=== PATIENT | male | born 1940 | race Caucasian/White ===

== ENCOUNTER 2021-07-24 19:23 | Emergency (ER) | payer MEDICARE, OTHER ==
[~2021-07-24] VITALS: Ht 165.1 cm; Wt 136.1 kg
[~2021-07-24 19:23] MED LIST: OXYM.05NI; RXSULTRIDS PO; SULTRIDS PO
[2021-07-24] MEDS ORDERED: AMOCLA875 PO (20:56)
== END 2021-07-24 21:31 | disposition home or self-care (01) ==
LOC: ER 19:23
DX: S51.852A Open bite of left forearm, initial encounter (principal); S51.851A Open bite of right forearm, initial encounter; S41.152A Open bite of left upper arm, initial encounter; S41.151A Open bite of right upper arm, initial encounter; S61.051A Open bite of right thumb without damage to nail, initial encounter; S61.255A Open bite of left ring finger without damage to nail, initial encounter; W55.01XA Bitten by cat, initial encounter; Z79.899 Other long term (current) drug therapy
CPT/HCPCS: 12001; 90471; 90714; 99282-25; A9270

== ENCOUNTER 2024-01-22 05:58 | Day surgery (SDC) | payer MEDICARE, OTHER ==
[~2024-01-22] VITALS: Ht 165.1 cm; Wt 107.9 kg
[2024-01-22] VITALS (14 sets, daily range): BP systolic 105–129; BP diastolic 62–87
[~2024-01-22 05:58] MED LIST changes: +AMOCLA875 PO; +ASPI81CH PO; +ATOR40TA PO; +PANT40 PO
[2024-01-22] MEDS ORDERED: Lactated Ringer's 1,000 ML IV SCH ×2 (06:20→06:50)
[2024-01-22] MEDS ORDERED: Tranexamic Acid 100 ML IV SCH (06:20)
[2024-01-22] MEDS ORDERED: Chlorhexidine Mouth Care 15 ML UDC MT SCH (06:20)
[2024-01-22] MEDS ORDERED: Ropivacaine 0.5% HCl/Pf 123.125 MG,EPINEPHrine HCL 0.25 MG,Ketorolac Tromethamine 15 MG... INFIL SCH (06:20)
[2024-01-22] MEDS ORDERED: Vancomycin HCL 1,000 MG in NS 250 ML IV SCH ×2 (06:20→20:00)
[2024-01-22] MEDS ORDERED: Acetaminophen 500 MG Tab PO SCH ×2 (06:20→08:00)
[2024-01-22] MEDS ORDERED: OxyCODONE HCL 10 MG TABCR PO SCH (06:20)
[2024-01-22] MEDS ORDERED: CeFAZolin Sodium 2,000 MG in NS 100 ML IV SCH ×2 (06:20→16:00)
[2024-01-22] MEDS ORDERED: HYDROmorphone HCl/Pf 1MG SYR IV PRN (06:45)
[2024-01-22] MEDS ORDERED: Ondansetron HCl 2 MG / ML 2ML Vial IV PRN (06:50)
[2024-01-22] MEDS ORDERED: Metoclopramide HCl 5MG / ML 2ML Vial IV PRN (06:50)
[2024-01-22] MEDS ORDERED: OxyCODONE HCL 5 MG TAB PO PRN ×2 (06:50)
[2024-01-22] MEDS ORDERED: Magnesium Hydroxide Conc 10 ML UDC PO PRN (06:50)
[2024-01-22] MEDS ORDERED: Prochlorperazine Edisylate 10 mg Vial IV PRN (06:50)
[2024-01-22] MEDS ORDERED: DiphenhydrAMINE HCL 25 MG Cap PO PRN (06:55)
[2024-01-22] MEDS ORDERED: Bisacodyl 10 MG Supp PR PRN (06:55)
[2024-01-22] MEDS ORDERED: Promethazine HCl 25 MG Tab PO PRN (06:55)
[2024-01-22] MEDS ORDERED: FLU VACC TS2024-25(6MOS UP)/PF 45 MCG/0.5 ML SYRINGE IM SCH (06:55)
[2024-01-22] MEDS ORDERED: Lidocaine HCl 2% 20 ML MDV ONE (07:26)
--- NOTE | 2024-01-22 07:30 | NUR ---
History, Chart, Medications and Allergies reviewed before start of procedure. Pre-Op teaching done. Pt verbalizes understanding. Patient confirms NPO status and agrees with scheduled surgery. PT REMOVED GLASSES AND BOTH TOP AND BOTTOM DENTURES AND PLACED IN PACU. SPECIMEN CUP SENT WITH PAYROLL CONSULTANT FOR PT TO GIVE HEARING AIDS ONCE IN OR. PT CLOTHES PLACED IN BELONINGS BAG UNDER BED.
[2024-01-22] MEDS ORDERED: Dexamethasone Sod Phos 10 MG/ML 1ML VIAL ONE (07:53)
[2024-01-22] MEDS ORDERED: Phenylephrine HCl 100 MCG/ML-NS 10MLSYR (1MG/10ML) ONE (07:57)
[2024-01-22] MEDS ORDERED: Phenylephrine HCl 10mg/ml 1 ml Vial ONE (08:06)
--- NOTE | 2024-01-22 08:32 | NUR ---
01/22/24 0832 Sara Meyer SKIN TEAR NOTED ON RIGHT GROIN CREASE, NOTED SKIN IN PANNIS RED AND A BRUISE PRESENT.
[2024-01-22] MEDS ORDERED: Ondansetron HCl 2 MG / ML 2ML Vial ONE (08:51)
[2024-01-22] MEDS ORDERED: Atorvastatin 40 MG Tab PO SCH (09:00)
[2024-01-22] MEDS ORDERED: Docusate Sodium 100 MG Cap PO SCH (09:00)
[2024-01-22] MEDS ORDERED: Pantoprazole Sodium 40 MG Tab PO SCH (09:00)
[2024-01-22] MEDS ORDERED: Ketorolac Tromethamine 15mg Vial IV SCH (12:00)
--- NOTE | 2024-01-22 18:14 | NUR ---
SHIFT SUMMARY HAS DONE WELL POST OP. AFTER SPINAL WORE OFF WAS ABLE TO WORK w/ BOTH OT & PT. STABLE GAIT. EATING, DRINKING, & VOIDING. SURG SITE WNL.
[2024-01-23 02:23] VITALS: BP 121/74
[2024-01-23 04:46] LABS: BASOPHILS ABSOLUTE AUTO 0.02 K/mm3 (0.00-0.23); BASOPHILS PERCENT AUTO 0 % (0-2); EOSINOPHILS ABSOLUTE AUTO 0.01 K/mm3 (0.00-0.68); EOSINOPHILS PERCENT AUTO 0 % (0-6); Hematocrit 38.4 % (37.0-53.0); Hemoglobin 12.7 g/dL (13.5-17.5); IMMATURE GRAN ABSOLUTE AUTO 0.07 K/mm3 (0.00-0.10); IMMATURE GRAN PERCENT AUTO 0 % (0-1); LYMPHOCYTES ABSOLUTE AUTO 1.38 K/mm3 (0.84-5.20); LYMPHOCYTES PERCENT AUTO 9 % (21-46); MONOCYTES ABSOLUTE AUTO 2.01 K/mm3 (0.16-1.47); MONOCYTES PERCENT AUTO 12 % (4-13); Mean Corpuscular HGB 28.9 pg (26.0-34.0); Mean Corpuscular HGB Conc 33.1 g/dL (31.5-36.5); Mean Corpuscular Volume 87 fL (80-100); Mean Platelet Volume 9.9 fL (9.1-12.4); NEUTROPHILS ABSOLUTE AUTO 12.72 K/mm3 (1.96-9.15); NEUTROPHILS PERCENT AUTO 79 % (41-73); Platelet Count 210 K/mm3 (150-400); RDW Coefficient Variation 14.7 % (11.7-14.2); RDW Standard Deviation 46.9 fL (35.1-46.3); White Blood Cell Count 16.21 K/mm3 (4.00-11.30)
--- NOTE | 2024-01-23 04:56 | NUR ---
SHIFT SUMMARY PT POD 0 RIGHT TOTAL HIP, PT RESTED MOST OF THE NIGHT. SURGICAL SITE WNL. PT VOIDING AND TOLERATING PO INTAKE. POST OP VITALS STABLE. PT TOLERATING INTAKE. PAIN MANANGED WITH MEDS PER EMAR. PLAN IS FOR DISCHARGE TODAY. BED IN LOWEST POSITION, CALL LIGHT WITHIN REACH.
[2024-01-23 05:11] LABS: Calcium, Blood 8.4 mg/dL (8.5-10.1); Creatinine, Blood 0.83 mg/dL (0.60-1.20); Potassium, Blood 4.4 mmol/L (3.5-5.5)
[2024-01-23] MEDS ORDERED: OXAYDO5 M1 PO (07:01)
[2024-01-23] MEDS ORDERED: SULTRIDS PO (07:02)
[2024-01-23] MEDS ORDERED: PROM25 PO (07:02)
[2024-01-23 07:20] VITALS: BP 132/61
[2024-01-23] MEDS ORDERED: Aspirin 81 MG Chew PO SCH (09:00)
[2024-01-23] MEDS ORDERED: Trimethoprim/Sulfamethoxazole DS Tab PO SCH (09:00)
== END 2024-01-23 10:40 | disposition home or self-care (01) ==
LOC: ORSCMMR 05:58 → ORD 07:30 → SURS 11:23 → ORSCMMR 01-23 10:40
PROVIDERS: Orthopaedic Surgery
PROC: 0SR90JA Replacement of Right Hip Joint with Synthetic Substitute, Uncemented, Open Approach (ICD-10-PCS; principal; 2024-01-22 07:30)
DX: M16.11 Unilateral primary osteoarthritis, right hip (principal); G47.33 Obstructive sleep apnea (adult) (pediatric); K21.9 Gastro-esophageal reflux disease without esophagitis; E78.5 Hyperlipidemia, unspecified; Z79.899 Other long term (current) drug therapy; Z87.891 Personal history of nicotine dependence; E66.9 Obesity, unspecified; Z68.39 Body mass index [BMI] 39.0-39.9, adult; Z86.73 Personal history of transient ischemic attack (TIA), and cerebral infarction without residual deficits; Z79.82 Long term (current) use of aspirin
CPT/HCPCS: 36415; 72170; 80048; 83735; 85025; 97110; 97116; 97162; 97165; 97530; 97535; A9270; C1713; C1776; J0171; J0690; J0735; J1100; J1885; J2371; J2405; J2795; J3370; J7050; J7120